=== PATIENT | male | born 1970 | race Caucasian/White ===

== ENCOUNTER 2019-09-27 14:11 | Emergency (ER) | payer MEDICARE, MEDICAID ==
[~2019-09-27] VITALS: Ht 180.3 cm; Wt 90.9 kg
[2019-09-27] MEDS ORDERED: [UNRECOGNIZED DRUG - REMARK] IH (15:22)
[2019-09-27] MEDS ORDERED: ALBU8HFA IH (15:22)
[2019-09-27] MEDS ORDERED: FLUT1BLS9 IH (18:13)
[2019-09-27] MEDS ORDERED: IPRATROPIUM BROMIDE 0.5 MG/2.5 ML NEB SOLUTION NEB ONE ×2 (18:15→19:00)
[2019-09-27] MEDS ORDERED: ALBUTEROL SULFATE 5 MG/ML 20 ML NEB SOLN [BULK] NEB ONE (18:15)
[2019-09-27 18:29] VITALS: BP 129/74
[2019-09-27] MEDS ORDERED: ALBUTEROL SULFATE 2.5 MG/0.5 ML NEB SOLUTION NEB ONE (19:00)
== END 2019-09-27 19:38 | disposition left against medical advice (07) ==
LOC: EMS 14:14
DX: J45.909 Unspecified asthma, uncomplicated (principal); K21.9 Gastro-esophageal reflux disease without esophagitis; F12.90 Cannabis use, unspecified, uncomplicated; Z87.891 Personal history of nicotine dependence; Z79.899 Other long term (current) drug therapy
CPT/HCPCS: 93005